=== PATIENT | female | born 1935 | race Caucasian/White ===

== ENCOUNTER 2020-12-20 10:02 | Emergency (ER) | payer OTHER, SELFPAY ==
[2020-12-20 11:11] LABS: PTT 29.8 sec (22.9-36.1); Prothrombin Time 13.8 sec (12.0-14.7)
[2020-12-20] MEDS ORDERED: Boostrix 0.5 ML (Tdap) VIAL ONE (11:16)
[2020-12-20 11:21] LABS: ALT (SGPT) 12 U/L (8-55); AST (SGOT) 18 U/L (5-34); Albumin 3.3 g/dL (3.4-4.8); Alkaline Phosphatase 88 U/L (40-110); Anion Gap 14 mmol/L (10-20); BUN (Urea Nitrogen) 17 mg/dL (9.8-20.1); Bilirubin, Total 0.6 mg/dL (0.2-1.2); Calc. Creatinine Clearance 0 mL/min (70-130); Calcium 8.6 mg/dL (7.8-10.44); Carbon Dioxide 27 mmol/L (23-31); Chloride 100 mmol/L (98-107); Globulin 3.4 g/dL (2.4-3.5); Glucose 151 mg/dL (83-110); Potassium 3.7 mmol/L (3.5-5.1); Protein, Total 6.7 g/dL (5.8-8.1); Sodium 137 mmol/L (136-145)
[2020-12-20 11:40] LABS: SARS-CoV-2 NAA Rapid Test Not Detected (NotDetected)
[2020-12-20 11:45] LABS: #Lymphocytes 0.5 thou/uL (1.20-3.40); #Monocytes 0.5 thou/uL (0.11-0.59); #Neutrophils 10.9 thou/uL (1.40-6.50); %Basophils 0.4 % (0.0-1.0); %Lymphocytes 4.4 % (21.0-51.0); %Monocytes 3.8 % (0.0-10.0); %Neutrophils 91.4 % (42.0-75.0); Hemoglobin 10.1 g/dL (12.0-16.0); Mean Corpuscular Hemoglobin 28.9 pg (27.0-31.0); Mean Corpuscular Volume 90.3 fL (78.0-98.0); Mean Platelet Volume 8.4 fL (7.4-10.4); Platelet Count 208 thou/uL (130-400); RBC Distribution Width 12.5 % (11.5-14.5); Red Blood Cell (RBC) Count 3.48 mill/uL (4.20-5.40)
== END 2020-12-20 13:23 | disposition short-term general hospital (02) ==
LOC: MADERS 10:02
DX: S72.002A Fracture of unspecified part of neck of left femur, initial encounter for closed fracture (principal); Z20.822 Contact with and (suspected) exposure to COVID-19; W17.89XA Other fall from one level to another, initial encounter
CPT/HCPCS: 36415; 80053; 85025; 85610; 85730; 90471; 90715; 99285; U0002